=== PATIENT | male | born 1940 | race Caucasian/White ===

== ENCOUNTER 2021-08-20 14:53 | Outpatient (RCR) | payer MEDICARE, OTHER, SELFPAY | END 2021-09-03 11:22 | disposition home or self-care (01) | LOC: PT.CARL 14:53 | PROVIDERS: PCP Family Medicine; Visit Provider Family Medicine | DX: M25.562 Pain in left knee (principal); M25.561 Pain in right knee; J44.1 Chronic obstructive pulmonary disease with (acute) exacerbation | CPT/HCPCS: 97542 ==

== ENCOUNTER 2022-11-06 19:34 | Observation (INO) | payer MEDICARE, OTHER, SELFPAY ==
[2022-11-06] VITALS (13 sets, daily range): BP systolic 101–159; BP diastolic 32–67; PULSE 60–83; RESP 18–24; TEMP 36.6–36.9; O2SAT 87–98; BMI 24.4; BMI 25.6
--- NOTE | 2022-11-06 20:10 | PC.NURSE ---
pt's daughter called and pt gave consent to update her. Daughter was updated on POC.
[2022-11-06 20:15] LABS: Coronavirus 19, PCR Not Detected (NotDetected); Influenza A, PCR Not Detected (NotDetected); Influenza B, PCR Not Detected (NotDetected)
--- NOTE | 2022-11-06 20:24 | XR_ITS ---
PROCEDURE INFORMATION: Exam: XR Chest Exam date and time: 11/06/2022 9:17 PM Age: 82 years old Clinical indication: Cough; Additional info: Cough, HX chf TECHNIQUE: Imaging protocol: Radiologic exam of the chest. Views: 2 views. COMPARISON: CR CXR CHEST(2 VIEWS-NOT PORTABLE) 07/03/2017 10:40 AM FINDINGS: Lungs: Subtle lower lobe patchy opacities. No consolidation. Pleural spaces: No pneumothorax. Heart/Mediastinum: Stable cardiac contours. Bones/joints: Degenerative changes of the shoulders. IMPRESSION: Subtle lower lobe patchy opacities which may be on the basis of atelectasis or pneumonitis. Follow-up to radiographic clearance is recommended.
--- NOTE | 2022-11-06 20:27 | CT_ITS ---
PROCEDURE INFORMATION: Exam: CT Abdomen And Pelvis With Contrast Exam date and time: 11/06/2022 9:24 PM Age: 82 years old Clinical indication: Nausea; Abdominal pain; Additional info: Abd pain, nausea, recent infection, chills TECHNIQUE: Imaging protocol: Computed tomography of the abdomen and pelvis with contrast. Radiation optimization: All CT scans at this facility use at least one of these dose optimization techniques: automated exposure control; mA and/or kV adjustment per patient size (includes targeted exams where dose is matched to clinical indication); or iterative reconstruction. Contrast material: ISOVUE; Contrast volume: 75 ml; Contrast route: IV; Other protocol: This patient has received 0 known CTs and 0 known cardiac nuclear medicine studies in the 12 months prior to the current study. COMPARISON: SCRO US SCROTUM 05/05/2017 12:14 PM FINDINGS: Lungs: Bronchial wall thickening with patchy lower lobe airspace opacities. Coronary arteries: Coronary artery calcifications. Liver: Normal. No mass. Gallbladder and bile ducts: Post cholecystectomy change. Pancreas: Fatty atrophy of the pancreas. Spleen: No splenomegaly. Adrenal glands: No mass. Kidneys and ureters: Hypoattenuating renal lesions too small to characterize. No hydronephrosis. Stomach and bowel: Diverticulosis coli without evidence for diverticulitis. Appendix: No evidence of appendicitis. Intraperitoneal space: No significant fluid collection. No free air. Vasculature: Calcified atherosclerosis. No aneurysm. Lymph nodes: No enlarged lymph nodes. Urinary bladder: Elongated bladder with potential adjacent stranding. Reproductive: No acute abnormality. Bones/joints: No acute fracture. Soft tissues: 2.2 cm fat containing right inguinal hernia. IMPRESSION: 1. Bronchial wall thickening with patchy lower lobe airspace opacities which would be compatible with pneumonitis. Follow-up to radiographic clearance is recommended. 2. Elongated bladder with potential adjacent stranding for which correlation with UA is recommended. 3. Diverticulosis coli without evidence for diverticulitis. 4. Other chronic and incidental findings described above.
--- NOTE | 2022-11-06 20:35 | HMH.EDEXTP ---
Discharge Plan Disposition Chief Complaint: Extremity Problem,Nontraumatic Prescriptions Prescriptions: No Action atorvastatin 20 mg tablet 20 mg PO HS ipratropium-albuterol 0.5 mg-3 mg(2.5 mg base)/3 mL solution for nebulization 3 ml INHALATION Q6HP PRN (Reason: Shortness Of Breath) lisinopril 20 mg tablet 20 mg PO DAILY isosorbide mononitrate 30 mg tablet extended release 24 hr 30 mg PO DAILY clonazepam 0.5 mg tablet 0.5 mg PO DAILY potassium chloride 10 mEq tablet extended release 10 meq PO BID omeprazole 40 mg capsule,delayed release(DR/EC) 40 mg PO DAILY furosemide 20 mg tablet 20 mg PO DAILY albuterol sulfate 90 mcg/actuation HFA aerosol inhaler 2 puff INHALATION Q6HP PRN (Reason: Shortness Of Breath) fluticasone propionate 50 mcg/actuation spray,suspension 2 spray INTRANASAL DAILY budesonide-formoterol [Symbicort] 160-4.5 mcg/actuation HFA aerosol inhaler 2 puff INHALATION DAILY diclofenac sodium 1 % gel 1 ea TOPICAL BID Eliquis 5 mg tablet 5 mg PO BID Clinical Impressions Clinical Impression: Atrial fibrillation, CHF (congestive heart failure), COPD (chronic obstructive pulmonary disease) with acute bronchitis, Respiratory failure with hypoxia Discharge ED Provider: Rosamaria (ED)Valentin Extremity Problem HPI General Chief complaint: Extremity Problem,Nontraumatic Stated complaint: CHILLS Time Seen by Provider: 11/06/22 20:05 Mode of Arrival: EMS Source of Information: Patient, EMS and Medical Record Limitations: No Limitations Description of Symptoms (Recalled from ER Triage Doc. by RN): c/o being cold. Pt states that he sat down after supper and got cold. States after a warm blanket was given to him, he felt warmer. Per EMS pt sbp was 180 upon assessment. History of Present Illness HPI Narrative: fever and chills tonight with hx of copd and no def chest pain - on eliquis - Onset (ago): hour(s) Consistency: intermittent Associated symptoms: shortness of breath and fever Related Data Home Medications Medication Instructions Recorded Confirmed albuterol sulfate 90 mcg/actuation 2 puff inhalation Q6HP PRN 11/06/22 11/06/22 aerosol inhaler Shortness Of Breath apixaban 5 mg tablet (Eliquis) 5 mg PO BID Blood thinner 11/06/22 11/06/22 atorvastatin 20 mg tablet 20 mg PO HS High cholesterol 11/06/22 11/06/22 budesonide-formoterol HFA 160 2 puff inhalation DAILY COPD 11/06/22 11/06/22 mcg-4.5 mcg/actuation aerosol inhaler (Symbicort) clonazepam 0.5 mg tablet 0.5 mg PO DAILY Anxiety 11/06/22 11/06/22 diclofenac sodium 1 % topical gel 1 ea topical BID Pain 11/06/22 11/06/22 fluticasone propionate 50 2 spray intranasal DAILY Allergy 11/06/22 11/06/22 mcg/actuation nasal symptoms spray,suspension furosemide 20 mg tablet 20 mg PO DAILY Fluid 11/06/22 11/06/22 ipratropium 0.5 mg-albuterol 3 mg 3 ml inhalation Q6HP PRN Shortness 11/06/22 11/06/22 (2.5 mg base)/3 mL nebulization Of Breath soln isosorbide mononitrate 30 mg 30 mg PO DAILY Heart disease 11/06/22 11/06/22 tablet,extended release 24 hr lisinopril 20 mg tablet 20 mg PO DAILY High blood pressure 11/06/22 11/06/22 omeprazole 40 mg capsule,delayed 40 mg PO DAILY GERD 11/06/22 11/06/22 release potassium chloride 10 mEq 10 meq PO BID Supplement 11/06/22 11/06/22 tablet,extended release Allergies Allergy/AdvReac Type Severity Reaction Status Date / Time MACROLIDES Allergy Unknown Uncoded 09/23/17 15:37 [facility] Disclaimer: The information contained in this section may have been updated after the patient was seen, as this information can be updated by other users. Social History Smoking Status: Current every day smoker alcohol intake: never current occupational status: retired Travel in the last 8 weeks: None ROS Obtained: Yes All systems reviewed & no additional complaints except as documented Physical Exam General Gen
[2022-11-06 20:39] LABS: Microscopic, Urine URINE MICROSCOPIC (MICROSCOPIC)
[2022-11-06 20:41] LABS: Basophils # 0.1 K/mm3 (0-0.2); Basophils % 0.4 % (0.1-2.0); Eosinophils # 0.2 K/mm3 (0.0-0.4); Eosinophils % 0.9 % (0.1-12.0); Hematocrit 33.4 % (42.0-52.0); Hemoglobin 10.3 g/dL (14.1-18.0); Lymphocytes # 1.2 K/mm3 (0.7-4.5); Lymphocytes % 5.5 % (10-50); Mean Corpuscular HGB Conc 30.8 g/dL (31.8-35.4); Mean Corpuscular Hemoglobin 24.6 pg (27.0-31.2); Mean Corpuscular Volume 79.7 fl (80-94); Mean Platelet Volume 8.6 fl (7.4-10.4); Monocytes # 0.8 K/mm3 (0.1-1.0); Monocytes % 3.8 % (1.7-9.3); Neutrophils # 19.5 K/mm3 (1.8-7.8); Neutrophils % 89.4 % (37.0-80.0); Platelet Count 357 K/mm3 (142-424); Red Blood Count 4.19 M/mm3 (4.60-6.20); Red Cell Distribution Width 18.8 % (11.5-17.5); White Blood Count 21.8 K/mm3 (4.8-10.8)
[2022-11-06 20:43] LABS: MANUAL DIFFERENTIAL MANUAL DIFFERENTIAL (MANUAL DIFF)
[2022-11-06 20:53] LABS: Appearance,Urine CLEAR (Clear); Bilirubin,Urine Negative (Negative); Blood, Urine 1+ (Negative); Color,Urine YELLOW (Yellow); Glucose,Urine (UA) Negative (Negative); Ketones,Urine Negative (Negative); Leukocyte Esterase,Urine Negative (Negative); Nitrate,Urine Negative (Negative); PH,Urine 5.5 (5.0-8.5); Protein,Urine Negative (Negative); Specific Gravity, Urine 1.025 (1.005-1.030); Urobilinogen,Urine 0.2 EU/dl (0.2)
[2022-11-06 20:55] LABS: Alanine Aminotransferase 21 U/L (12-78); Albumin/Globulin Ratio 1.7 (1.1-1.8); Alkaline Phosphatase 71 U/L (38-126); Amylase 53 U/L (30-110); Anion Gap 7.8 mEq/L (5-15); Aspartate Amino Transferase 25 U/L (17-59); Bilirubin,Total 0.7 mg/dl (0.2-1.3); Blood Urea Nitrogen 11 mg/dl (9-20); Calcium 8.6 mg/dl (8.4-10.2); Carbon Dioxide 29 mmol/L (22.0-30.0); Chloride 102 mmol/L (98-107); Creatinine Clearance Estimated 51 mL/min (50-200); Estimated Glomerular Filt Rate 53 ml/min (>60); GFR (African American) 64 ML/MIN (>60); Globulin 2.4 g/dL (1.3-3.2); Glucose 144 mg/dl (74-100); Lactic Acid 1.4 mmol/L (0.7-2.1); Lipase 50 U/L (23-300); Potassium 3.8 mmoL/L (3.5-5.1); Sodium 135 mmol/L (136-145); Total Protein,Serum 6.4 g/dl (6.3-8.2)
--- NOTE | 2022-11-06 21:02 | PC.NURSE ---
gave pt's daughter an update
[2022-11-06 21:04] LABS: NT Pro Brain Natriuretic Pep. 1600 pg/mL (0-450)
[2022-11-06 21:24] LABS: Squamous Epithelial Cell,Urine Occasional #/hpf (0-5)
[2022-11-06 21:34] LABS: Lymphocytes % 7 % (10-50); Monocytes % 1 % (2-9); Neutrophils % 91 % (42-76); Total Cells Counted 100
[2022-11-06 21:35] LABS: Hypochromasia 1+; Ovalocytes 1+; Platelet Estimate Normal
--- NOTE | 2022-11-06 22:13 | ECG_ITS ---
APPROVED REPORT Exam: Resting ECG HR:74 bpm ECG Measurements Heart Rate 74 AXES QRSd 105 QRS 11 QT 407 T 70 QTc 434 Conclusion ATRIAL FIBRILLATION MODERATE ST DEPRESSION [0.05+ mV ST DEPRESSION] ABNORMAL ECG UNCONFIRMED REPORT Electronically signed by : Frank Baltazar MD 11/07/2022 21:51:32
[2022-11-06 22:32] LABS: Troponin I 0.02 ng/ml (0.00-0.034)
--- NOTE | 2022-11-06 22:35 | PC.NURSE ---
Dr. Blank s/w Gio Greenwood for admission
--- NOTE | 2022-11-06 22:47 | PC.NURSE ---
house notified for bed assignment
--- NOTE | 2022-11-06 23:01 | EXP.HP ---
History of Present Illness *Admission Date: 11/06/22 *Reason for visit:: Chills, body aches, productive cough *History of present illness: Mr. Resendiz is a 82-year-old male who presented to [facility] due to chills, body aches and productive cough that he reports came on all the sudden this evening after eating supper. He denies known similar sick contacts. He reports that he recently underwent antibiotic treatment with penicillin prescribed by his PCP for his stomach, he denies knowing the diagnosis or dosage. He reports that he completed the course of antibiotic around 2 weeks ago. In the ER, the patient had a CT of the chest that showed a subtle bilateral lower lobe opacities, and an elongated bladder with adjacent stranding. CBC showed a WBC of 21.8. Covid and Flu testing were negative. BNP was elevated at 1600. The patient met sepsis criteria on admission with RR 22, WBC of 21.8 and Source concerning for Pneumonia. He is allergic to macrolides so he will be placed on Levaquin. Procalcitonin, urine for strep and legionella were ordered and sputum. He was given a dose of lasix on admission and an echo will be ordered for the am. The plan of care was discussed with the patient on admission. He verbalized understanding and agreement with the plan of care. [facility] Disclaimer: The information contained in this section may have been updated after the patient was seen, as this information can be updated by other users. Medical History (Updated 11/07/22 @ 11:05 by Jani Oden MD) Anxiety disorder Atrial fibrillation COPD (chronic obstructive pulmonary disease) History of fracture of right ankle Hyperlipidemia Hypertension Surgical History Hx of cholecystectomy Family History Family history non-contributory Social History (Updated 11/07/22 @ 00:11 by Rody Goldsimth RN) Smoking Status: Current every day smoker tobacco type: pipe years smoked: 70 Tobacco counseling given: patient declined alcohol intake: never current occupational status: retired Travel in the last 8 weeks: None special samir needs: No agree to transfusion: No Review of Systems Review of Systems Review of systems:: pertinent systems reviewed and negative unless documented below Constitutional Constitutional: Reports body ache(s), Reports chills, Reports fatigue and Reports lethargy Eyes Eyes: Reports system reviewed and no additional complaints, except as documented ENT Ears, Nose, Mouth, and Throat: Reports system reviewed and no additional complaints, except as documented *Cardiovascular Cardiovascular: Reports system reviewed and no additional complaints, except as documented *Respiratory Respiratory: Reports cough and Reports excessive phlegm production *Gastrointestinal Gastrointestinal: Reports system reviewed and no additional complaints, except as documented *Genitourinary Genitourinary: Reports system reviewed and no additional complaints, except as documented *Musculoskeletal Musculoskeletal: Reports system reviewed and no additional complaints, except as documented Integumentary/Breasts Skin/Breast: Reports system reviewed and no additional complaints, except as documented *Neurologic Neurologic: Reports system reviewed and no additional complaints, except as documented Psychiatric Psychiatric: Reports system reviewed and no additional complaints, except as documented Endocrine Endocrine: Reports fatigue Hematologic/Lymphatic Hematologic/Lymphatic: Reports system reviewed and no additional complaints, except as documented Allergic/Immunologic Allergic/Immunologic: Reports system reviewed and no additional complaints, except as documented Meds Home Medications and Allergies Home Medications Medication Instructions Recorded Confirmed Type albuterol sulfate 90 mcg/actuation 2 puff inhal
--- NOTE | 2022-11-07 00:29 | PC.NURSE ---
pt refused eliquis stats he already took it tonight and did not want to take anymore
[2022-11-07 01:24] LABS: Troponin I 0.03 ng/ml (0.00-0.034)
[2022-11-07 02:40] VITALS: PULSE 65
[2022-11-07 04:00] VITALS: BP 112/61; PULSE 70; PULSE 75; RESP 24; TEMP 37.2; O2SAT 97; BMI 25.6
[2022-11-07 04:52] LABS: Troponin I 0.03 ng/ml (0.00-0.034)
--- NOTE | 2022-11-07 04:52 | PC.NURSE ---
pt admitted this shift, lungs with expiratory wheezes noted, o2 sats 97% on room air, skin pwd and without edema, vss, telemetry reveals atrial fib. no acute distress, pt voiding without difficulty, pt with uop 925+ post lasix. pt is [place] with bilat hearing aids, pt uses a cane at home and has a history of falls, urinal at bedside. pt instructed to call for assist with ambulation
[2022-11-07 07:44] VITALS: BP 137/59; PULSE 60; RESP 17; TEMP 37.1; O2SAT 96
--- NOTE | 2022-11-07 07:58 | P.CONPHA_ITS ---
Pharmacy Intervention Comments: home medication list verified using list from [facility]
--- NOTE | 2022-11-07 07:58 | HMH.PHAINT1 ---
Pharmacy Intervention Comments: home medication list verified using list from [facility]
[2022-11-07 08:17] LABS: Basophils # 0.1 K/mm3 (0-0.2); Basophils % 0.2 % (0.1-2.0); Eosinophils # 0.1 K/mm3 (0.0-0.4); Eosinophils % 0.2 % (0.1-12.0); Hematocrit 32.2 % (42.0-52.0); Lymphocytes # 1.6 K/mm3 (0.7-4.5); Mean Corpuscular HGB Conc 31.1 g/dL (31.8-35.4); Mean Corpuscular Hemoglobin 24.8 pg (27.0-31.2); Mean Platelet Volume 8.3 fl (7.4-10.4); Monocytes % 3.9 % (1.7-9.3); Neutrophils # 23.9 K/mm3 (1.8-7.8); Neutrophils % 89.8 % (37.0-80.0); Platelet Count 299 K/mm3 (142-424); Red Blood Count 4.02 M/mm3 (4.60-6.20); Red Cell Distribution Width 18.9 % (11.5-17.5); White Blood Count 26.7 K/mm3 (4.8-10.8)
[2022-11-07 08:33] LABS: Anion Gap 10.2 mEq/L (5-15); Blood Urea Nitrogen 13 mg/dl (9-20); Carbon Dioxide 27 mmol/L (22.0-30.0); Chloride 102 mmol/L (98-107); Creatinine Clearance Estimated 47 mL/min (50-200); Estimated Glomerular Filt Rate 45 ml/min (>60); GFR (African American) 54 ML/MIN (>60); Glucose 121 mg/dl (74-100); Potassium 4.2 mmoL/L (3.5-5.1); Sodium 135 mmol/L (136-145)
[2022-11-07 08:59] LABS: MANUAL DIFFERENTIAL MANUAL DIFFERENTIAL (MANUAL DIFF)
--- NOTE | 2022-11-07 11:05 | EXP.DC.SUM ---
General Admission date:: 11/06/22 Discharge date: 11/07/22 HPI HPI HPI: Mr. Resendiz is a 82-year-old male who presented to [facility] due to chills, body aches and productive cough that he reports came on all the sudden this evening after eating supper. He denies known similar sick contacts. He reports that he recently underwent antibiotic treatment with penicillin prescribed by his PCP for his stomach, he denies knowing the diagnosis or dosage. He reports that he completed the course of antibiotic around 2 weeks ago. In the ER, the patient had a CT of the chest that showed a subtle bilateral lower lobe opacities, and an elongated bladder with adjacent stranding. CBC showed a WBC of 21.8. Covid and Flu testing were negative. BNP was elevated at 1600. The patient met sepsis criteria on admission with RR 22, WBC of 21.8 and Source concerning for Pneumonia. He is allergic to macrolides so he will be placed on Levaquin. Procalcitonin, urine for strep and legionella were ordered and sputum. He was given a dose of lasix on admission and an echo will be ordered for the am. The plan of care was discussed with the patient on admission. He verbalized understanding and agreement with the plan of care. Hospital Course Hospital Course Hospital Course: 82-year-old male with chronic tobacco use, COPD, not home oxygen dependent, Atrial Fibrillation on chronic anticoagulation presents with acute onset of chills, body aches and productive cough - Sepsis (POA) -Community-acquired pneumonia Sepsis criteria met on admission, RR 22, WBC 21.8, concerning source Pneumonia. Reports onset of chills and body aches and cough. Negative for flu and COVID on admission. CT obtained of abdomen and pelvis showing lower lobe consolidations. Started on antibiotics and steroids with levofloxacin and prednisone. Patient has remained on room air throughout admission. Nonproductive cough. Given clinical stability, will discharge home on oral therapy with close follow-up with his PCP. Recommend repeat labs to monitor improvement in leukocytosis and kidney function within the next week. Stable for discharge home. - Elevated BNP -Atrial fibrillation -Hypertension Noted to have elevated BNP on admission. Patient has longstanding history of A. fib and hypertension. Diuresed x1 with good response with fluid output. No change to blood pressure regimen. Continue home medications. No adjustment to diuretics on discharge. Continue home apixaban twice daily, lisinopril 20 mg daily, isosorbide 30 mg daily. - COPD Greater than 100 pack year history. Continues to smoke, counseled on the need to quit. Continue home Albuterol/Symbicort - Hyperlipidemia Continue Atorvastatin 20 mg po q hs Medically stable for discharge home. PT/OT evaluated on day of discharge, patient at baseline level of function. No home health needs at this time Exam Data for Last 24 hours Vital signs and Labs for Last 24 Hours: Temp Pulse Resp BP Pulse Ox 98.8 F 60 17 137/59 L 96 11/07/22 07:44 11/07/22 07:44 11/07/22 07:44 11/07/22 07:44 11/07/22 07:44 Laboratory Results - last 24 hr 11/06/22 20:05: SARS-CoV-2 (PCR) Not detected, Influenza A Untype (PCR) Not detected, Influenza Type B (PCR) Not detected 11/06/22 20:20: WBC 21.8 H*, RBC 4.19 L, Hgb 10.3 L, Hct 33.4 L, MCV 79.7 L, MCH 24.6 L, MCHC 30.8 L, RDW 18.8 H, Plt Count 357, MPV 8.6, Neut % (Auto) 89.4 H, Lymph % (Auto) 5.5 L, [place] % (Auto) 3.8, Eos % (Auto) 0.9, Baso % (Auto) 0.4, Neut # (Auto) 19.5 H, Lymph # (Auto) 1.2, [place] # (Auto) 0.8, Eos # (Auto) 0.2, Baso # (Auto) 0.1, Total Counted 100, Neutrophils % (Manual) 91 H, Lymphocytes % (Manual) 7 L, Monocytes % (Manual) 1 L, Basophils % (Manual) 1.0, Platelet Estimate Normal, Hypochromasia 1+, Ovalocytes 1+ 11/06/22 20:20: Sodium 135 L, Potassium 3.8, Chloride 102, Carbon Dioxide 29, Anion Gap 7.8, BUN 11, Creatinine 1.30 H, Estimated Creat Clear 51, Estimated
[2022-11-07 11:08] LABS: Lymphocytes % 8 % (10-50); Monocytes % 3 % (2-9); Neutrophils % 89 % (42-76); Total Cells Counted 100
[2022-11-07 11:09] LABS: Hypochromasia 2+; Platelet Estimate Normal
[2022-11-07 11:11] VITALS: BP 125/69; PULSE 73; RESP 17; TEMP 37.1; O2SAT 92
--- NOTE | 2022-11-07 11:36 | HMH.PTEV ---
Physical Therapy Evaluation Rehab PT IP Evaluation Start: 11/07/22 10:18 Freq: ONCE Status: Active Protocol: Document 11/07/22 11:25 [email or web address] (Rec: 11/07/22 11:35 PHOLIS [id number]) Subjective/History History History 82 yowm adm to [facility] with PNA and COPD exac. He reports he lives alone in an Apartment, no steps to enter, and he is independent using a cane for all mobility. Subjective Subjective Pt has no c/o this am. Rehab PT IP Eval Objective Appearance Patient Behavior Appropriate Patient Orientation Person,Place,Time Difficulty following instructions none Speech Pattern Clear Ambulation Patient Able to Ambulate Yes Ambulation Observation IP General Gait Pattern Observation No Deviations/Normal Ambulation Distance (feet) 40 Ambulation Assistive Device None Ambulation Ability Supervision/Stand by Balance Ability to Arise Able, uses arms to help Sitting Balance Steady, safe Standing Balance Steady, wide stance Dynamic Sitting Balance Ability Good Dynamic Standing Balance Ability Good Transfers Bed Transfer Ability Supervision/Stand by Chair Transfer Ability Supervision/Stand by Sit to Stand Bed Transfer Ability Supervision/Stand by Sit to Stand Chair Transfer Ability Supervision/Stand by ROM All Extremities PT ROM Status WFL MMT All Extremities PT MMT WFL Rehab PT IP prob,goals,plan Problems Date of Evaluation: 11/07/22 Discharge Plan PT Discharge Plan Pt is appropriate for return to home once medically stable for d/c. No inpatient therapy needs at this time. G -code Required No Eval Complexity Eval Charge Codes 48029 - Moderate Complexity PHYSICIAN CERTIFICATION: I certify the specified therapy services for Jani Resendiz are required, authorized, and reviewed every 30 days.
--- NOTE | 2022-11-07 12:05 | HMH.OTEV ---
OT Inpatient Evaluation Rehab OT IP Evaluation Start: 11/07/22 10:18 Freq: ONCE Status: Active Protocol: Document 11/07/22 11:56 PAMELLA (Rec: 11/07/22 12:05 PAMELLA [id number]) Rehab OT IP Assessment Subjective History Mr. Resendiz is a 82-year-old male who presented to [facility] due to chills, body aches and productive cough that he reports came on all the sudden this evening after eating supper. He denies known similar sick contacts. He reports that he recently underwent antibiotic treatment with penicillin prescribed by his PCP for his stomach, he denies knowing the diagnosis or dosage. He reports that he completed the course of antibiotic around 2 weeks ago. In the ER, the patient had a CT of the chest that showed a subtle bilateral lower lobe opacities, and an elongated bladder with adjacent stranding. CBC showed a WBC of 21.8. Covid and Flu testing were negative. BNP was elevated at 1600. The patient met sepsis criteria on admission with RR 22, WBC of 21.8 and Source concerning for Pneumonia. He is allergic to macrolides so he will be placed on Levaquin. Procalcitonin, urine for strep and legionella were ordered and sputum. He was given a dose of lasix on admission and an echo will be ordered for the am. The plan of care was discussed with the patient on admission . He verbalized understanding and agreement with the plan of care. Patient lives in a two story apartment alone and uses straight cane to ambulate. Instru
[2022-11-07 15:23] VITALS: BP 132/62; PULSE 64; RESP 17; TEMP 36.8; O2SAT 92
--- NOTE | 2022-11-07 15:46 | HMH.PHAINT1 ---
Pharmacy Intervention Comments: DISCHARGE MEDICATION COUNSELING PROVIDED. DISCUSSED THE FOLLOWING NEW PRESCRIPTIONS: -LEVOFLOXACIN (ANTIBIOTIC, DAILY, TAKE WITH FOOD, N/V/D POSSIBLE, RARE RISK OF TENDON RUPTURE). -PREDNISONE (STEROID, DAILY, TAKE WITH FOOD PREFERABLY WITH BREAKFAST, MAY CAUSE N/V, INSOMNIA, HUNGER, ELEVATED BLOOD SUGAR) PATIENT VERBALIZED NO QUESTIONS AT THIS TIME.
--- NOTE | 2022-11-07 15:52 | PC.NURSE ---
dc packet went over with pt. pt waiting on ride home.
--- NOTE | 2022-11-08 13:51 | CARE MANAGER ---
Attempted post-discharge phone interview, no answer.
[2022-11-11 18:08] LABS: Body Fluid Culture, Sterile Not indicated. (.); Legionella pneumophila Urinary Negative (Negative); Organism ID Not indicated. (.); Specimen Source Urine (.); Streptococcus pneumoniae Ag Negative (Negative)
== END 2022-11-07 16:30 | disposition home or self-care (01) ==
LOC: ER 22:13 → 2ND 23:22
PROVIDERS: Nurse Practitioner Family; Admitting Provider Internal Medicine Adolescent Medicine; Emergency Provider Emergency Medicine; PCP Nurse Practitioner; Visit Provider Internal Medicine Adolescent Medicine
DX: J18.9 Pneumonia, unspecified organism (principal); Z79.01 Long term (current) use of anticoagulants; I48.91 Unspecified atrial fibrillation; I10 Essential (primary) hypertension; E78.5 Hyperlipidemia, unspecified; F17.210 Nicotine dependence, cigarettes, uncomplicated; J44.9 Chronic obstructive pulmonary disease, unspecified; R06.9 Unspecified abnormalities of breathing; Z20.822 Contact with and (suspected) exposure to COVID-19
CPT/HCPCS: G0378; 36415; 71046; 74177; 80048; 80053; 81001; 82150; 83605; 83690; 83880; 84145; 84484; 85007; 85025; 87040; 87070; 87205; 87899; 93005; 93306; 97162; 97165; 99285; C9803; J1956; J2405; Q9967; U0003; U0005